=== PATIENT | female | born 1935 | race Caucasian/White ===

== ENCOUNTER 2023-03-20 00:50 | Inpatient (IN) | payer MEDICARE, OTHER ==
[~2023-03-20] VITALS: Ht 157.5 cm; Wt 73.5 kg
[2023-03-20 00:50] VITALS: BP 127/73; PULSE 90; RESP 19; TEMP 97.8; O2SAT 99
[2023-03-20] MEDS ORDERED: ONDANSETRON 4 MG/2 ML VIAL ONE (01:04)
[2023-03-20] MEDS ORDERED: ONDANSETRON 4 MG/2 ML VIAL IVP ONE (01:10)
[2023-03-20] MEDS ORDERED: NACL 0.9% 1,000 ML IV ONE (01:25)
[2023-03-20 01:39] LABS: BASOPHILS # (AUTO) 0.1 K/uL (0.00-0.22); BASOPHILS % (AUTO) 0.7 % (0.0-2.0); EOSINOPHILS % (AUTO) 0.6 % (0.0-4.0); HEMATOCRIT 42.4 % (36-48); HEMOGLOBIN 14.3 g/dL (12.0-16.0); LYMPHOCYTES # (AUTO) 1.6 K/uL (2.5-16.5); LYMPHOCYTES % (AUTO) 19.2 % (20.5-51.1); MEAN CORPUSCULAR HEMOGLOBIN 29 pg (27-31); MEAN CORPUSCULAR HGB CONC 34 g/dL (33-37); MEAN CORPUSCULAR VOLUME 86.4 fL (80-94); MONOCYTES # (AUTO) 0.4 K/uL (0.8-1.0); MONOCYTES % (AUTO) 4.9 % (1.7-9.3); NEUTROPHILS # (AUTO) 6.1 K/uL (1.8-7.7); NEUTROPHILS % (AUTO) 74.6 % (42.2-75.2); PLATELET COUNT (AUTO) 226 K/uL (140-450); RED CELL DISTRIBUTION WIDTH 14.7 % (11.6-13.7); WHITE BLOOD COUNT (AUTO) 8.1 K/uL (4.8-10.8)
[2023-03-20 01:56] LABS: ALANINE AMINOTRANSFERASE 15 U/L (12-78); ALBUMIN 3.2 g/dL (3.4-5.0); ALKALINE PHOSPHATASE 73 U/L (50-136); ANION GAP 13.2 (8-16); ASPARTATE AMINOTRANSFERASE 12 U/L (15-37); CALCIUM 9.3 mg/dL (8.5-10.1); CARBON DIOXIDE 25.5 mmol/L (21-32); CHLORIDE 102 mmol/L (98-107); CREATININE 0.9 mg/dL (0.6-1.3); GLUCOSE 134 mg/dL (74-106); LIPASE 18 U/L (16-77); POTASSIUM 3.7 mmol/L (3.5-5.1); SODIUM SERUM 137 mmol/L (136-145); TOTAL BILIRUBIN 0.7 mg/dL (0.0-1.0); TOTAL PROTEIN, SERUM 7.1 g/dL (6.4-8.2); UREA NITROGEN, BLOOD 15 mg/dL (7-18)
[2023-03-20 02:01] LABS: LACTIC ACID 1.5 mmol/L (0.4-2.0)
[2023-03-20 03:15] LABS: APPEARANCE,URINE CLEAR (CLEAR); BILIRUBIN,URINE 1+ (NEGATIVE); BLOOD, URINE TRACE-I (NEGATIVE); COLOR,URINE YELLOW (YELLOW); LEUKOCYTE ESTERASE ,URINE 1+ (NEGATIVE); NITRITE, URINE NEGATIVE (NEGATIVE); PROTEIN,URINE TRACE (NEGATIVE); UGLUCOSE TRACE (NEGATIVE)
[2023-03-20 03:22] LABS: ICTOTEST POSITIVE (NEGATIVE)
[2023-03-20 03:23] LABS: RBC,URINE 0-5 /HPF (0-5)
[2023-03-20 03:24] LABS: BACTERIA,URINE 10-30 (MOD) /HPF (None Seen); MUCUS,URINE 1+ /LPF (None Seen); SQUAMOUS EPITHELIAL CELL,UR 4-10 (MOD) /LPF (0-3 (FEW))
[2023-03-20] MEDS ORDERED: cefTRIAXone 1,000 MG VIAL ONE (03:47)
[2023-03-20 07:32] VITALS: O2SAT 98
[2023-03-20] MEDS ORDERED: ACETAMINOPHEN 325 MG TAB PO PRN (08:05)
[2023-03-20] MEDS ORDERED: ONDANSETRON 4 MG/2 ML VIAL IVP PRN (08:05)
[2023-03-20] MEDS ORDERED: LORazepam 2 MG/ML VIAL IVP PRN (08:05)
[2023-03-20] MEDS ORDERED: MORPHINE SULFATE 2 MG/ML SYR IVP PRN (08:05)
[2023-03-20] MEDS ORDERED: OXYB5TAB44 PO (08:24)
[2023-03-20] MEDS ORDERED: ATOR20TA PO (08:24)
[2023-03-20] MEDS ORDERED: SYN.05 PO (08:24)
[2023-03-20] MEDS ORDERED: DULO20EC PO (08:24)
[2023-03-20] MEDS ORDERED: AMLO5TAB PO (08:24)
[2023-03-20] MEDS ORDERED: MAGN400S60 PO (08:24)
[2023-03-20] MEDS ORDERED: DONE10TA10 PO (08:24)
[2023-03-20] MEDS ORDERED: DIVA125E1 (08:24)
[2023-03-20] MEDS ORDERED: SERT50TA PO (08:24)
[2023-03-20] MEDS ORDERED: CHOL200035 PO (08:24)
[2023-03-20] MEDS ORDERED: EXE9.5T TD (08:24)
[2023-03-20] MEDS: NACL 0.9% 1,000 ML IV SCH ×2 (08:55→21:25)
[2023-03-20 10:00] VITALS: PULSE 83; RESP 18; O2SAT 98
[2023-03-20 16:00] VITALS: BP 135/42; PULSE 52; RESP 16; TEMP 97.7; O2SAT 96
[2023-03-20 20:00] VITALS: BP 128/45; PULSE 55; RESP 18; TEMP 97; O2SAT 97
[2023-03-21] MEDS: NACL 0.9% 1,000 ML IV SCH (03:08)
[2023-03-21 04:00] VITALS: BP 132/56; PULSE 52; RESP 19; TEMP 97.6; O2SAT 98
[2023-03-21 06:44] LABS: BASOPHILS # (AUTO) 0.1 K/uL (0.00-0.22); BASOPHILS % (AUTO) 0.9 % (0.0-2.0); EOSINOPHILS # (AUTO) 0.1 K/uL (0-0.4); EOSINOPHILS % (AUTO) 1.9 % (0.0-4.0); HEMATOCRIT 42.1 % (36-48); HEMOGLOBIN 14.1 g/dL (12.0-16.0); LYMPHOCYTES # (AUTO) 2.8 K/uL (2.5-16.5); LYMPHOCYTES % (AUTO) 48.3 % (20.5-51.1); MEAN CORPUSCULAR HEMOGLOBIN 29 pg (27-31); MEAN CORPUSCULAR HGB CONC 34 g/dL (33-37); MEAN CORPUSCULAR VOLUME 87.2 fL (80-94); MONOCYTES # (AUTO) 0.4 K/uL (0.8-1.0); MONOCYTES % (AUTO) 7.6 % (1.7-9.3); NEUTROPHILS # (AUTO) 2.4 K/uL (1.8-7.7); NEUTROPHILS % (AUTO) 41.3 % (42.2-75.2); PLATELET COUNT (AUTO) 216 K/uL (140-450); RED BLOOD CELL COUNT(AUTO) 4.83 MIL/uL (4.20-5.40); RED CELL DISTRIBUTION WIDTH 14.4 % (11.6-13.7); WHITE BLOOD COUNT (AUTO) 5.8 K/uL (4.8-10.8)
[2023-03-21 06:49] LABS: ANION GAP 12.7 (8-16); CALCIUM 9.1 mg/dL (8.5-10.1); CARBON DIOXIDE 27.5 mmol/L (21-32); CHLORIDE 106 mmol/L (98-107); CREATININE 0.7 mg/dL (0.6-1.3); GLUCOSE 80 mg/dL (74-106); POTASSIUM 4.2 mmol/L (3.5-5.1); SODIUM SERUM 142 mmol/L (136-145); UREA NITROGEN, BLOOD 8 mg/dL (7-18)
[2023-03-21 08:00] VITALS: PULSE 58; RESP 20; O2SAT 99
[2023-03-21] MEDS ORDERED: NITR100C7 PO (16:11)
[2023-03-21 20:00] VITALS: BP 151/56; PULSE 59; RESP 18; TEMP 98.2; O2SAT 98
[2023-03-22] MEDS: NACL 0.9% 1,000 ML IV SCH ×2 (00:05→13:42)
[2023-03-22 04:00] VITALS: BP 160/60; PULSE 60; RESP 18; TEMP 98; O2SAT 99
[2023-03-22 08:00] VITALS: BP 138/45; PULSE 64; RESP 17; TEMP 97.9; O2SAT 94; O2SAT 98
[2023-03-22 15:44] VITALS: BP 138/45; PULSE 64; RESP 17; TEMP 97.9
== END 2023-03-22 16:25 | disposition home or self-care (01) | DRG 698 ==
LOC: MED 00:50 → MTU 08:07 → OBSVTOIN 08:07 → INTOOBSV 08:07
PROVIDERS: ADMIT Hospitalist; ATTEND Hospitalist
DX: T83.511A Infection and inflammatory reaction due to indwelling urethral catheter, initial encounter (principal); G93.41 Metabolic encephalopathy; N39.0 Urinary tract infection, site not specified; G30.9 Alzheimer's disease, unspecified; F02.80 Dementia in other diseases classified elsewhere, unspecified severity, without behavioral disturbance, psychotic disturbance, mood disturbance, and anxiety; I10 Essential (primary) hypertension
CPT/HCPCS: 36415; 71045; 80048; 80053; 81001; 81003; 83605; 83690; 83735; 84484; 85025; 87040; 87086; 93005; 96361; 96365; 96375; 99285; J0696; J2060; J2405; J7060